=== PATIENT | male | born 1955 | race Caucasian/White ===

== ENCOUNTER → 2018-11-20 | Outpatient (CLI) | payer BC ==
--- NOTE | 2018-11-20 18:48 | RAD ---
Three-view right knee radiographs 11/20/2018 CLINICAL HISTORY: Chronic right knee pain and swelling. AP, lateral, and two oblique digital radiographs of the right knee were obtained. No fracture or dislocation right knee is seen. Mild to moderate degenerative changes are seen involving predominantly the medial and patellofemoral compartments of the right knee. Moderate enthesophyte formation is seen involving the superior and inferior anterior patella. There is no radiographic evidence of a joint effusion. IMPRESSION: Degenerative changes are seen involving the right knee as outlined above. No acute osseous abnormality is seen. Electronically signed by: Will Steward MD (11/20/2018 6:43 PM) [facility]
== END | disposition home or self-care (01) ==
LOC: RAD 16:31
PROVIDERS: ATTEND Family Medicine
DX: M17.11 Unilateral primary osteoarthritis, right knee (principal)
CPT/HCPCS: 73562

== ENCOUNTER → 2019-02-01 | Outpatient (CLI) | payer BC ==
--- NOTE | 2019-02-06 15:00 | SLEEP ---
DATE OF STUDY: 02/01/2019 ATTENDING PHYSICIAN: Dr. Tad Lee. The patient is 64 years old who weighs 255 pounds with a BMI of 35. The patient's [place] score was 11. The patient had a sleep study about 4 years ago and was diagnosed with sleep apnea. The patient, however, did not receive proper instructions about the use of CPAP. As a result, he did not use it. He was referred back for CPAP titration study. During the night study, the patient spent 410 minutes in bed and slept for 348 minutes with a sleep efficiency of 85%. Sleep latency was 7 minutes with a REM latency of 218 minutes. Overall, sleep architecture showed increased stage 1 and stage 2 sleep, absent slow wave and reduced REM sleep. EKG monitoring revealed normal sinus rhythm, average heart rate 68 beats per minute. No arrhythmias observed. PLMS were seen at index of 7 per hour and 1 per hour caused EEG arousals. The patient was started on CPAP at 5 cm water and titrated up to 11 cm water. At the final pressure, the patient slept for 101 minutes. The patient did not have any supine sleep, but had lateral REM sleep. The patient's AHI was reduced to 0 per hour and oxygen saturation remained above 92%. The patient used nasal pillows. IMPRESSION: 1. Sleep apnea diagnosed by previous sleep study. 2. No clinically significant PLMS. RECOMMENDATIONS: 1. CPAP at 11 cm water completely eliminated the patient's sleep apnea and should be used on a nightly basis. 2. Follow up in 4-6 weeks to assess compliance with CPAP and to document clinical improvement. 3. Weight loss is strongly advised. 4. Avoid TREE SCOUT depressants. 5. Caution regarding driving until symptoms of sleep apnea resolve with the use of CPAP. PATRICIA ARSHAD MD DR: MARÍA/isaura JOB#: [id number] / [id number] TAD Salazar
== END | disposition home or self-care (01) ==
LOC: SLPLAB 19:07
PROVIDERS: ATTEND Family Medicine
DX: G47.33 Obstructive sleep apnea (adult) (pediatric) (principal)
CPT/HCPCS: 95810

== ENCOUNTER 2019-07-18 15:21 | Inpatient (IN) | payer BC ==
[~2019-07-18] VITALS: Ht 180.3 cm; Wt 121.6 kg
[2019-07-18 15:41] VITALS: BP 168/99
--- NOTE | 2019-07-18 16:00 | NUR ---
pt arrived to unit at 1540 in stable condition. pt ambulated to room with independently. pt is alert and oriented and on RA. pt has call light within reach. pt is not having any pain at this time and states its only when he moves. paged dr ramos at this time for admit orders. will continue to monitor.
[2019-07-18] MEDS ORDERED: oxyCODONE/APAP 5/325 1 TAB TABLET PO PRN (17:15)
[2019-07-18] MEDS ORDERED: PANT20TA2 PO (17:37)
[2019-07-18] MEDS ORDERED: CELE200C PO (17:39)
[2019-07-18 17:54] LABS: BASO % 1 % (0-3); EOS % 0 % (0-3); HEMATOCRIT 41.7 % (39.0-53.0); HEMOGLOBIN 14.3 g/dL (13.0-17.5); LYMPH # 0.8 x10^3/uL (1.0-4.8); LYMPH % 10 % (24-48); MEAN CORPUSCULAR HEMOGLOBIN 28 pg (25-35); MEAN CORPUSCULAR HGB CONC 34 g/dL (31-37); MEAN CORPUSCULAR VOLUME 81 fL (79-100); MONO # 0.5 x10^3/uL (0.0-1.1); MONO % 6 % (0-9); NEUT # 6.5 x10^3/uL (1.8-7.7); NEUT % 84 % (31-73); PLATELET COUNT 182 x10^3/uL (140-400); RED BLOOD COUNT 5.12 x10^6/uL (4.30-5.70); RED CELL DISTRIBUTION WIDTH 14.4 % (11.5-14.5); WHITE BLOOD COUNT 7.8 x10^3/uL (4.0-11.0)
[2019-07-18 18:16] LABS: ALBUMIN 3.8 g/dL (3.4-5.0); ALBUMIN/GLOBULIN RATIO 1.2 (1.0-1.7); CALCIUM 8.9 mg/dL (8.5-10.1); GFR 75.2; POTASSIUM 4.1 mmol/L (3.5-5.1); TOTAL BILIRUBIN 0.5 mg/dL (0.2-1.0); TOTAL PROTEIN 7.1 g/dL (6.4-8.2)
[2019-07-18] MEDS: PANTOPRAZOLE 40 MG TABLET.DR. PO SCH (18:26)
[2019-07-18 19:00] VITALS: BP 149/92
[2019-07-18 19:06] LABS: BILIRUBIN,URINE NEGATIVE (NEG); CLARITY,URINE CLEAR; COLOR,URINE YELLOW; NITRITE,URINE NEGATIVE (NEG); PH,URINE 7.5; PROTEIN,URINE NEGATIVE (NEG-TRACE)
[2019-07-18 19:24] LABS: BACTERIA,URINE 0 /HPF (0-FEW); RBC,URINE OCC /HPF (0-2); SQUAMOUS EPITHELIAL CELL,UR FEW /LPF; WBC,URINE OCC /HPF (0-4)
--- NOTE | 2019-07-18 19:49 | HP ---
ADMIT DATE: 07/18/2019 ADMISSION HISTORY AND PHYSICAL CHIEF COMPLAINT AND HISTORY OF PRESENT ILLNESS: This 64-year-old white male is well known to me in followup in the office. The patient was seen on Tuesday of this week, 07/16, with a very unusual pain pattern with severe right buttock area pain, particularly with movement of his left leg. It was excruciating, debilitating giving him troubles getting up and down. It was felt it was most likely lumbar radicular in nature and was started on some prednisone. He was not improved by the , having troubles getting up still, could not get an outpatient MRI for another week, so elected to admit him to the expedite workup and get pain control. The patient, also on the day of admission, was ____ right foot, which was new from the time I saw him on Tuesday. PAST MEDICAL HISTORY: Remarkable for osteoarthritis, obstructive sleep apnea, GI irritation from nonsteroidals and history of Achilles tendinitis. MEDICATIONS: Meds were brought with the patient, listed on the computer and have been addressed. ALLERGIES: HE IS ALLERGIC TO PENICILLIN. SOCIAL HISTORY: The patient is a nonsmoker and drinks occasional beer, does not use drugs. Retired from post office. Lives with his . FAMILY HISTORY: Noncontributory. REVIEW OF SYSTEMS: As mentioned above. He denies specifically any bowel or bladder ____ leg weakness and can move his right leg without any pain, whatsoever. PHYSICAL EXAMINATION: GENERAL: He is a well-developed and well-nourished white male, in no acute distress at rest. VITAL SIGNS: Stable. He is afebrile. HEAD, EYES, EARS, NOSE AND THROAT: Unremarkable. NECK: Supple without thyromegaly. CHEST: Clear to auscultation and percussion. HEART: Regular rate and rhythm without S3, S4 or murmur. ABDOMEN: Soft and nontender without hepatosplenomegaly or masses. EXTREMITIES: Without cyanosis, clubbing or edema. There is very strong positive straight leg raising test on the 20-30 degrees on the left, but the pain is in the right buttock area. Eventually, the legs are intact. There is no palpable tenderness in his buttocks or axillary area on examination. IMPRESSION: Incapacitating lumbar radicular symptoms with inability to do activities to daily living. PLAN: The patient has been admitted. Dr. Oliveira will be consulted. MRI of the lumbar spine will be obtained. Pain will be controlled as best we can. The patient will be monitored, managed and treated appropriately. TAD DELUCA MD DR: JAMAL/isaura JOB#: [id number] / [id number]
[2019-07-18] MEDS: CYCLOBENZAPRINE 10 MG TABLET. PO PRN (22:06)
[2019-07-18 22:55] VITALS: BP 169/90
[2019-07-19 02:59] VITALS: BP 112/64
[2019-07-19 07:00] VITALS: BP 152/91
--- NOTE | 2019-07-19 08:33 | PDOC ---
GENERAL General: vss and afebrile. MRI not done yet. some numbness in both feet now. Dr. Oliveira to see. labs ok. chest clear, heart regular, abdomen benign. continued severe pain with attempted left SLR. VITAL SIGNS/I&O Vital Signs/I&O: Vital Signs Date Time Temp Pulse Resp B/P (MAP) Pulse Ox O2 Delivery O2 Flow Rate FiO2 07/19/19 02:59 97.7 64 16 112/64 (80) 97 Room Air 97.7 I & O 07/18/19 07/18/19 07/19/19 15:00 23:00 07:00 Intake Total 400 ml Balance 400 ml ALLERGIES Allergies: Allergies Coded Allergies Type Severity Reaction Last Updated Verified Penicillins Allergy Intermediate 07/19/19 Yes meloxicam Allergy Intermediate 07/19/19 Yes MEDS Medications: Current Medications Medications (Trade) Dose Ordered Sig/Rachell Route PRN Reason Start Time Stop Time Status Last Admin Dose Admin Cyclobenzaprine HCl (Flexeril) 10 mg PRN Q6HRS PRN PO MUSCLE SPASMS 07/18/19 17:00 07/18/19 22:06 Oxycodone/ Acetaminophen (Percocet 5/325) 1 tab PRN Q4HRS PRN PO MODERATE TO SEVERE PAIN 07/18/19 17:15 07/18/19 22:06 Pantoprazole Sodium (Protonix) 40 mg BIDAC PO 07/18/19 18:00 07/18/19 18:26 LAB Lab: Laboratory Tests Test 07/18/19 17:45 07/18/19 18:55 White Blood Count 7.8 x10^3/uL (4.0-11.0) Red Blood Count 5.12 x10^6/uL (4.30-5.70) Hemoglobin 14.3 g/dL (13.0-17.5) Hematocrit 41.7 % (39.0-53.0) Mean Corpuscular Volume 81 fL (79-100) Mean Corpuscular Hemoglobin 28 pg (25-35) Mean Corpuscular Hemoglobin Concent 34 g/dL (31-37) Red Cell Distribution Width 14.4 % (11.5-14.5) Platelet Count 182 x10^3/uL (140-400) Neutrophils (%) (Auto) 84 % (31-73) H Lymphocytes (%) (Auto) 10 % (24-48) L Monocytes (%) (Auto) 6 % (0-9) Eosinophils (%) (Auto) 0 % (0-3) Basophils (%) (Auto) 1 % (0-3) Neutrophils # (Auto) 6.5 x10^3/uL (1.8-7.7) Lymphocytes # (Auto) 0.8 x10^3/uL (1.0-4.8) L Monocytes # (Auto) 0.5 x10^3/uL (0.0-1.1) Eosinophils # (Auto) 0.0 x10^3/uL (0.0-0.7) Basophils # (Auto) 0.0 x10^3/uL (0.0-0.2) Erythrocyte Sedimentation Rate 3 (0-15) Sodium Level 143 mmol/L (136-145) Potassium Level 4.1 mmol/L (3.5-5.1) Chloride Level 107 mmol/L (98-107) Carbon Dioxide Level 26 mmol/L (21-32) Anion Gap 10 (6-14) Blood Urea Nitrogen 17 mg/dL (8-26) Creatinine 1.0 mg/dL (0.7-1.3) Estimated GFR (Cockcroft-Gault) 75.2 BUN/Creatinine Ratio 17 (6-20) Glucose Level 143 mg/dL (70-99) H Calcium Level 8.9 mg/dL (8.5-10.1) Total Bilirubin 0.5 mg/dL (0.2-1.0) Aspartate Amino Transferase (AST) 12 U/L (15-37) L Alanine Aminotransferase (ALT) 27 U/L (16-63) Alkaline Phosphatase 91 U/L (46-116) Total Protein 7.1 g/dL (6.4-8.2) Albumin 3.8 g/dL (3.4-5.0) Albumin/Globulin Ratio 1.2 (1.0-1.7) Urine Collection Type Unknown Urine Color Yellow Urine Clarity Clear Urine pH 7.5 Urine Specific [place] 1.015 Urine Protein Negative mg/dL (NEG-TRACE) Urine Glucose (UA) 100 mg/dL (NEG) Urine Ketones (Stick) Negative mg/dL (NEG) Urine Blood Negative (NEG) Urine Nitrite Negative (NEG) Urine Bilirubin Negative (NEG) Urine Urobilinogen Dipstick 1.0 mg/dL (0.2 mg/dL) Urine Leukocyte Esterase Negative (NEG) Urine RBC Occ /HPF (0-2) Urine WBC Occ /HPF (0-4) Urine Squamous Epithelial Cells Few /LPF Urine Bacteria 0 /HPF (0-FEW) Laboratory Tests 07/18/19 17:45 Laboratory Tests 07/18/19 17:45 TAD DELUCA MD Jul 19, 2019 08:33
[2019-07-19] MEDS: CELECOXIB 100 MG CAPSULE. PO SCH (08:54)
[2019-07-19] MEDS: PANTOPRAZOLE 40 MG TABLET.DR. PO SCH ×2 (08:54→16:06)
[2019-07-19] MEDS ORDERED: GADOTERATE 7.5 MMOL/15ML VIAL. IVP ONE (09:45)
[2019-07-19] MEDS ORDERED: BUPIVACAINE MPF 0.25% 10 ML VIAL. IJ ONE (10:00)
[2019-07-19] MEDS ORDERED: methylPREDNISolone ACETATE 40 MG/ML VIAL. IM ONE (10:00)
--- NOTE | 2019-07-19 10:42 | RAD ---
MRI Lumbar Spine without and with contrast History: Right lumbar radiculopathy Technique: Multiplanar, multi sequential pre and postcontrast MR imaging was performed of the lumbar spine. Comparison: None Findings: Lumbar vertebral body stature is maintained. There is grade 1 anterior spondylolisthesis at L4-5. Conus terminates at T12-L1. There is no nodular enhancement of the conus or cauda equina. There are small hemangiomas of T11 and L5. There is moderate to severe L5-S1 degenerative disc disease with degree of interbody calcification. There is mild degenerative disc disease at L4-5 and mild disc desiccation L3-4. L1-L2: This level was not included on axial images. Neural foramina and spinal canal are adequate. L2-L3: There is mild facet degenerative change. Neural foramina and spinal canal are adequate. L3-L4: There is anterior annular tear. There is mild buckling of the ligamentum flavum and facet hypertrophic change. There is minimal narrowing of the far right lateral recess. There is mild posterior narrowing of the left neural foramen by facet, right neural foramen overall adequate. L4-L5: There is small anterior annular tear. There is mild to moderate facet degenerative change. There is moderate right and mild left lateral recess stenosis primarily from posteriorly. There is mild narrowing of the left neural foramen by disc osteophyte complex and facet. Right neural foramen is not significantly narrowed. L5-S1: There is minimal disc osteophyte complex slightly indenting the ventral thecal sac greater right lateral recess, near descending right S1 nerve root without significant impingement. Spinal canal is overall adequate. There is minimal facet degenerative change. Neural foramina are overall adequate. Impression: 1. There is moderate right and mild left lateral recess stenosis at L4-5, minimal narrowing of the far right lateral recess L3-4. There is grade 1 anterior spondylolisthesis at L4-5 at which there is facet degenerative change. There is degenerative disc disease greatest at L5-S1, minimally at L4-5. Electronically signed by: Eren Barry MD (07/19/2019 10:39 AM) [facility]
[2019-07-19 11:00] VITALS: BP 136/72
--- NOTE | 2019-07-19 13:16 | PDOC4 ---
PROCEDURE Procedure At his request,I have injected painful right sacroiliac joint under aseptic skin technique using alcohol swab,with 1 ml of methylprednisone 40mg/1 ml.solution mixed with 2 ml of o.25% bupivacaine solution and he tolerated the procedure satisfactorily without any side effects. TONI MCFADDEN MD Jul 19, 2019 13:16
--- NOTE | 2019-07-19 14:24 | NUR ---
pt received steroid injection per Dr Oliveira to pt's low back pt tolerated well.Dr Lee notified of Dr Oliveira's discharge if okay with him,Dr Lee stated okay if pt feels well enough to go home,pt declines discharge today,discharge cancelled today.
[2019-07-19] MEDS: oxyCODONE ER 10 MG TAB.ER.12H PO SCH ×2 (14:39→21:41)
[2019-07-19 15:00] VITALS: BP 136/88
--- NOTE | 2019-07-19 15:55 | NUR ---
SS following for discharge planning. SS reviewed pt chart. Pt is from home with spouse and is currently on room air. No discharge needs noted at this time. SS will continue to follow for discharge planning.
[2019-07-19 19:00] VITALS: BP 122/67
--- NOTE | 2019-07-19 19:58 | CONS ---
DATE OF CONSULTATION: 07/19/2019 ATTENDING PHYSICIAN: Dr. Lee. LOCATION: He is in room 414. REASON FOR CONSULTATION: The patient was seen at the request of Dr. Lee for rehab evaluation. 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 The patient started having low back pain mainly with getting in under the bed without any specific injury, started about 10 days ago. He was seen at [facility] emergency room, had CT scan, which revealed degenerative disk disease at L4-L5 as per his . The patient admits moving his left lower extremity causes severe pain over right side of his lower back. The patient admits some tingling and numbness in his toes since yesterday. He denies any trouble with his bowel or bladder control or any weakness. The patient had steroid Dosepak for the last 3 days without much improvement, so he was admitted last night for further evaluation including MRI scan. The patient with known osteoarthritis, obstructive sleep apnea, GI irritation from nonsteroidal anti-inflammatory medication and history of Achilles tendinitis. ALLERGIES: THE PATIENT IS KNOWN ALLERGIC TO PENICILLIN. SOCIAL HISTORY: He is a nonsmoker. The patient lives with his . PHYSICAL EXAMINATION: Physical examination today revealed a middle-aged male. He is alert, in no acute distress, oriented to time, place, person and circumstance and no significant pain on forward flexion or extension of his lumbar spine, but pain on lateral bending to right side. The patient had localized tenderness to palpation over right sacroiliac joint area and straight leg raising test is negative bilaterally. He had 5/5 grade muscle strength in his extremities. Deep tendon reflexes are 2+ at knees, absent at both ankles. He had equal perception of touch and pinprick sensation bilaterally. He had pain free range of motion of both hip and knee joints. He is having significant pain while trying to lie down or trying to get up from lying down position. No lumbar paraspinal muscle spasm was noted at this time. ASSESSMENT: A middle-aged male with recent onset lumbosacral sprain in a patient with known degenerative disk disease of lumbar vertebrae without any clinical evidence of lumbar radiculopathy, clinical evidence of peripheral neuropathy, mild obesity, obstructive sleep apnea. RECOMMENDATIONS: To see what the MRI scan of her lumbar vertebrae shows to consider lumbar epidural steroid injection or right sacroiliac joint area injection to help ease the pain. Home when medically stable with outpatient followup. Dr. Lee, I appreciate asking me to participate in the care of this interesting patient. I will be glad to see him for followup with you on as needed basis. TONI MCFADDEN MD DR: JAVY/isaura JOB#: [id number] / [id number]
[2019-07-19] MEDS: CYCLOBENZAPRINE 10 MG TABLET. PO PRN (21:40)
[2019-07-19 22:45] VITALS: BP 111/69
[2019-07-20 03:00] VITALS: BP 93/53
[2019-07-20] MEDS: PANTOPRAZOLE 40 MG TABLET.DR. PO SCH (06:11)
[2019-07-20 07:00] VITALS: BP 157/93
[2019-07-20] MEDS: oxyCODONE ER 10 MG TAB.ER.12H PO SCH (08:44)
[2019-07-20] MEDS: CELECOXIB 100 MG CAPSULE. PO SCH (08:44)
--- NOTE | 2019-07-20 09:27 | PDOC ---
PROGRESS NOTES Subjective Subjective He admits pain relief lasting for 3 hours only after right sacroiliac joint injection and admits continued pain with bed mobility. Objective Objective Vital Signs Date Time Temp Pulse Resp B/P (MAP) Pulse Ox O2 Delivery O2 Flow Rate FiO2 07/20/19 08:45 Room Air 07/20/19 07:00 98.1 71 18 157/93 (114) 93 98.1 Intake and Output 07/20/19 06:59 Intake Total 530 ml Balance 530 ml Intake Oral 530 ml # Voids 3 Physical Exam Physical Exam He is alert and no change noted with his neurological examination and with small abdominal binder as lumbar corset,he got in and out of bed without any difficulty and he is walking independently. Plan Plan of Care To let him go home with out patient follow up and to consider lumbar epidural steroid injections or neurosurgical advise if pain persists and to let him take hydrocodone on as needed basis for pain as he admits not much help from oxycontin. Comment Review of Relevant I have reviewed the following items anant (where applicable) has been applied. Labs Laboratory Tests Test 07/18/19 17:45 07/18/19 18:55 White Blood Count 7.8 x10^3/uL (4.0-11.0) Red Blood Count 5.12 x10^6/uL (4.30-5.70) Hemoglobin 14.3 g/dL (13.0-17.5) Hematocrit 41.7 % (39.0-53.0) Mean Corpuscular Volume 81 fL (79-100) Mean Corpuscular Hemoglobin 28 pg (25-35) Mean Corpuscular Hemoglobin Concent 34 g/dL (31-37) Red Cell Distribution Width 14.4 % (11.5-14.5) Platelet Count 182 x10^3/uL (140-400) Neutrophils (%) (Auto) 84 % (31-73) Lymphocytes (%) (Auto) 10 % (24-48) Monocytes (%) (Auto) 6 % (0-9) Eosinophils (%) (Auto) 0 % (0-3) Basophils (%) (Auto) 1 % (0-3) Neutrophils # (Auto) 6.5 x10^3/uL (1.8-7.7) Lymphocytes # (Auto) 0.8 x10^3/uL (1.0-4.8) Monocytes # (Auto) 0.5 x10^3/uL (0.0-1.1) Eosinophils # (Auto) 0.0 x10^3/uL (0.0-0.7) Basophils # (Auto) 0.0 x10^3/uL (0.0-0.2) Erythrocyte Sedimentation Rate 3 (0-15) Sodium Level 143 mmol/L (136-145) Potassium Level 4.1 mmol/L (3.5-5.1) Chloride Level 107 mmol/L (98-107) Carbon Dioxide Level 26 mmol/L (21-32) Anion Gap 10 (6-14) Blood Urea Nitrogen 17 mg/dL (8-26) Creatinine 1.0 mg/dL (0.7-1.3) Estimated GFR (Cockcroft-Gault) 75.2 BUN/Creatinine Ratio 17 (6-20) Glucose Level 143 mg/dL (70-99) Calcium Level 8.9 mg/dL (8.5-10.1) Total Bilirubin 0.5 mg/dL (0.2-1.0) Aspartate Amino Transf (AST/SGOT) 12 U/L (15-37) Alanine Aminotransferase (ALT/SGPT) 27 U/L (16-63) Alkaline Phosphatase 91 U/L (46-116) Total Protein 7.1 g/dL (6.4-8.2) Albumin 3.8 g/dL (3.4-5.0) Albumin/Globulin Ratio 1.2 (1.0-1.7) Urine Collection Type Unknown Urine Color Yellow Urine Clarity Clear Urine pH 7.5 Urine Specific [place] 1.015 Urine Protein Negative mg/dL (NEG-TRACE) Urine Glucose (UA) 100 mg/dL (NEG) Urine Ketones (Stick) Negative mg/dL (NEG) Urine Blood Negative (NEG) Urine Nitrite Negative (NEG) Urine Bilirubin Negative (NEG) Urine Urobilinogen Dipstick 1.0 mg/dL (0.2 mg/dL) Urine Leukocyte Esterase Negative (NEG) Urine RBC Occ /HPF (0-2) Urine WBC Occ /HPF (0-4) Urine Squamous Epithelial Cells Few /LPF Urine Bacteria 0 /HPF (0-FEW) Medications Current Medications Cyclobenzaprine HCl (Flexeril) 10 mg PRN Q6HRS PRN PO MUSCLE SPASMS Last administered on 07/19/19 21:41; Start 07/18/19 at 17:00 Oxycodone/ Acetaminophen (Percocet 5/325) 1 tab PRN Q4HRS PRN PO MODERATE TO SEVERE PAIN Last administered on 07/18/19at 22:06; Start 07/18/19 at 17:15 Celecoxib (CeleBREX) 200 mg DAILY PO Last administered on 07/20/19 08:45; Start 07/19/19 at 09:00 Pantoprazole Sodium (Protonix) 40 mg BIDAC PO Last administered on 07/20/19 06:12; Start 07/18/19 at 18:00 Gadoterate Meglumine (Dotarem) 24.4 ml 1X ONCE IVP Last administered on 07/19/19at 09:50; Start 07/19/19 at 09:45; Stop 07/19/19 at 09:46; Status DC Methylprednisolone Acetate (DEPO-Medrol 40MG VIAL) 40 mg 1X ONCE IM ; Start 07/19/19 at 10:00; Stop 07/19/19 at 10:02; Status DC Bupivacaine HCl (Sensorcaine-Mpf 0.25%) 10 ml 1X ONCE IJ ; Start 07/19/19 at 10:00; Stop 07/19/19 at 10:02; Status DC Oxycodone HCl (OxyCONTIN) 10 mg Q12HR PO Last administered on 07/19/19 21:41; Start 07/19/19 at 14:00 Active Scripts Active Reported Celebrex (Celecoxib) 200 Mg Capsule 1 Cap PO DAILY Protonix (Pantoprazole Sodium) 20 Mg Tablet.dr 40 Mg PO BID Vitals/I & O Vital Sign - Last 24 Hours 07/19/19 07/19/19 07/19/19 07/19/19 11:00 14:39 15:00 19:00 Temp 98.6 98.4 98.3 98.6 98.4 98.3 Pulse 69 74 74 Resp 18 18 18 18 B/P (MAP) 136/72 (93) 136/88 (104) 122/67 (85) Pulse Ox 93 93 92 93 O2 Delivery Room Air Room Air Room Air Room Air 07/19/19 07/19/19 07/19/19 07/19/19 19:01 19:45 21:41 22:45 Temp 97.8 97.8 Pulse 71 Resp 20 16 18 B/P (MAP) 111/69 (83) Pulse Ox 92 94 O2 Delivery Room Air Room Air Room Air Room Air 07/20/19 07/20/19 07/20/19 07/20/19 01:43 03:00 07:00 08:45 Temp 98.4 98.1 98.4 98.1 Pulse 73 71 Resp 18 18 18 B/P (MAP) 93/53 (66) 157/93 (114) Pulse Ox 93 93 O2 Delivery Room Air Room Air Room Air Room Air Intake and Output 07/19/19 07/19/19 07/20/19 14:59 22:59 06:59 Intake Total 50 ml 480 ml Balance 50 ml 480 ml TONI MCFADDEN MD Jul 20, 2019 09:27
[2019-07-20 09:33] VITALS: BP 136/85
--- NOTE | 2019-07-20 10:04 | NUR ---
Pt. discharged to home with Rx and abd binder. Pt. and verbalized understanding of discharge instructions.
--- NOTE | 2019-07-21 01:30 | DS ---
DATE OF DISCHARGE: 07/20/2019 PRIMARY DIAGNOSES: 1. Right lower back and leg pain with numbness consistent with lumbar radiculopathy. 2. Right sacroiliac pain with injection by Dr. Oliveira during the stay. CHIEF COMPLAINT AND HISTORY OF PRESENT ILLNESS: This is a 64-year-old white male who was admitted, incapacitated with right buttocks pain that was worse, particularly with moving his left leg in a straight leg raising type fashion. He had failed 2 days of outpatient prednisone and pain medicines. He was unable to get off the couch and was admitted for more expedited workup as we could only get an outpatient MRI in a week or so as an outpatient. SUMMARY OF STAY: The patient was admitted. Dr. Oliveira was asked to see him. MRI of the lumbar spine showed moderate right and mild left lateral recess stenosis at L4-L5, minimal narrowing of the far right lateral access at L3-L4, grade 1 anterior spondylolisthesis at L4-L5, degenerative disk disease, greatest at L5-S1, minimally at L4-L5. Dr. Oliveira injected his sacroiliac joint. ____ relieved his pain. 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 Thus, I think he can go home to see how he would do with the same and ____ we would go with the conservative therapy as an outpatient. DISPOSITION: The patient is discharged to home. DIET: Regular. ACTIVITY: As tolerated. FOLLOWUP: Office followup next week. DISCHARGE MEDICATIONS: Listed on the med rec and have been addressed. TAD DELUCA MD DR: JAMAL/isaura JOB#: [id number] / [id number]
== END 2019-07-20 10:00 | disposition home or self-care (01) | DRG 552 ==
LOC: 4 NORTH 15:26
PROVIDERS: ADMIT Family Medicine; ATTEND Family Medicine
PROC: 3E0U33Z Introduction of Anti-inflammatory into Joints, Percutaneous Approach (ICD-10-PCS; principal; 2019-07-19)
PROC: 3E0U3BZ Introduction of Anesthetic Agent into Joints, Percutaneous Approach (ICD-10-PCS; 2019-07-19)
DX: M51.16 Intervertebral disc disorders with radiculopathy, lumbar region (principal); G47.33 Obstructive sleep apnea (adult) (pediatric); Z88.0 Allergy status to penicillin; M19.90 Unspecified osteoarthritis, unspecified site; M48.061 Spinal stenosis, lumbar region without neurogenic claudication; E66.9 Obesity, unspecified; Z68.37 Body mass index [BMI] 37.0-37.9, adult
CPT/HCPCS: 36415; 72158; 80053; 81001; 85025; 85651; A9575; G0378

== ENCOUNTER → 2019-08-21 | Outpatient (CLI) | payer BC ==
[~2019-08-21] MED LIST: ASPI81TA50 PO; CELE200C PO; IOHEXOL 180 MG/ML 10 ML VIAL. ONE; PANT20TA2 PO; methylPREDNISolone ACETATE 40 MG/ML VIAL. ONE; methylPREDNISolone ACETATE 80 MG/ML VIAL. ONE
--- NOTE | 2019-08-22 02:37 | PAIN ---
DATE OF SERVICE: 08/21/2019 INITIAL CONSULTATION FOR PAIN CLINIC CHIEF COMPLAINT: Low back and right lower extremity pain. HISTORY OF PRESENT ILLNESS: This is a 64-year-old male who presents with history of pain, for about the past 7 weeks, he was lifting some 5 gallons buckets of water in his garden and reports he had some significant pain as noticed in the low back and the right leg since that time. The patient reports it is getting better minimally, but he was actually hospitalized for the pain for a day or two and when it first happened, the patient reports he had an injection in the right hip of cortisone, which helped but only immediately and was worn off within a few hours. He was referred to a neurosurgeon who is recommending conservative treatment at this time. The patient reports it is worse with walking, standing, changing positions. When he is standing still, it is not significantly painful or even walking short distances, it is not significantly painful as well, but with changing positions, getting up from a seated position or sitting from standing, getting out of bed in the morning, the patient reports the pain is across the low back into the right posterior gluteus, posterior thigh and occasionally in the posterior calf with some tingling in the toes, but only very rarely. The patient reports the pain is sharp, intermittent in intensity in the right side and the low back. The patient did have an MRI scan of the lumbar spine showing moderate right and mild left lateral recess stenosis at L4-L5 with degenerative disk disease greatest at L5-S1, minimally at L4-L5 with disk osteophyte complex at L5-S1 indenting the ventral thecal sac in the greater than right lateral recess near the descending right S1 nerve root without significant impingement. The patient rates his disability from 0-10, 10 being the worst, 9 with family home responsibilities, 10 with sexual behavior, 7 with social activity, 8 with self-care, and 2 with life support activities. The patient reports it does awaken him from sleep about twice a night, does not affect his bowel or bladder control, but does affect his ability to walk; he is not using any assistive devices, however. The patient has had chiropractic treatment as well as doing exercise on his own. He is also taking hydrocodone, which does decrease the pain; he has taken that last night most recently. PAST MEDICAL HISTORY: Significant for gastroesophageal reflux, dizziness, vertigo and arthritis. PREVIOUS SURGERY: Include cataract extractions, deviated septum surgery and umbilical hernia repair. CURRENT MEDICATIONS: Include pantoprazole, Celebrex, fish oil and baby aspirin. ALLERGIES: The patient has no known drug allergies. FAMILY HISTORY: Significant for Alzheimer's disease. SOCIAL HISTORY: The patient drinks 2 to 3 alcoholic drinks once a month on average. He does not use any illegal, illicit or recreational drugs. Does not smoke, does not use any other tobacco products. He is , lives with his spouse, lives locally in [place], [place]. Reports he is currently retired. REVIEW OF SYSTEMS: The patient's review of systems is positive for those items mentioned in history of present illness. All systems reviewed and otherwise negative. It is complete, full and well documented on the patient's chart. PHYSICAL EXAMINATION: VITAL SIGNS: The patient's blood pressure is 152/97, pulse 77, respirations 18, temperature 98.4 degrees Fahrenheit, height is 5 feet 11 inches, weight is 268 pounds. GENERAL: The patient is awake, alert, oriented, appropriate, very pleasant demeanor. HEENT: Shows normocephalic, atraumatic. Extraocular movements are intact and symmetrical. Oral cavity: Mucous membranes moist and pink. Dentition is intact. NECK: Shows anterior throat supple without palpable lymphadenopathy noted. Swallow reflex symmetrical. CHEST: Shows normal on inspection. Breath sounds clear to auscultation bilaterally. HEART: Shows S1, S2 clear. No murmurs auscultated. ABDOMEN: Soft, nontender, nondistended. No palpable organomegaly is noted. No rebound or guarding demonstrated. BACK: The patient's back shows spine grossly in the midline, normal appearing thoracic kyphosis, some minor flattening of lumbar lordotic curvature. Lumbar paraspinous muscle shows symmetrical on inspection, on palpation shows some moderate tenderness bilaterally, but only diffusely without radiation. The patient has good rotational motion of lumbar spine, both laterally greater than 10 degrees right and left as well as extension greater than 10 degrees, forward flexion 45 degrees without significant increase in pain, no tenderness over the sacrum and sacroiliac regions or the spinous processes with palpation. EXTREMITIES: The patient's lower extremities show deep tendon reflexes at 2+ in the patellar, 1+ tendo-calcaneus tendons. Motor exam is strong with 5/5 dorsiflexion, extension, quadriceps and hamstring flexion symmetrical. Peripheral pulses are 1+ posterior tibia. No peripheral edema is noted bilaterally. Lower extremities are warm and dry to touch, equal in color and appearance. The patient's straight leg raise noted to be negative for reproduction of radicular symptoms bilaterally. Gaenslen's and Danny's maneuvers are negative bilaterally as well. The patient is able to stand, has difficulty getting from a seated position to standing. He uses arm rests on the chair to get into a standing position more comfortably, but is walking with a normal appearing gait, does not appear to favor the right or left lower extremity significantly. SKIN: The patient's skin shows warm and dry, good turgor. No edema. No sores, rashes or bruising throughout. IMPRESSION: 1. This is a 64-year-old male with approximately 7-week history of low back and right lower extremity pain in a radicular fashion. 2. MRI scan of lumbar spine as noted. 3. Arthritis. 4. Gastroesophageal reflux. PLAN: Options were discussed with the patient including conservative medical management, physical therapy, interventional techniques. He would like to pursue interventional techniques. We discussed a lumbar epidural steroid injection using description as well as anatomical models to describe the procedure. Risks were then discussed including, but not limited to bleeding, infection, possibility of epidural hematoma, subsequent neurological compromise, dural puncture, headaches, spinal cord and/or nerve damage, side effects of steroid medication and poor results regarding pain control. The patient understands and wished to proceed. The patient will return to the clinic in approximately 2 weeks for followup. He was counseled on return appointment, activity level and side effects to be aware of. DIAGNOSES: Lumbar radiculopathy with lumbar degenerative disk disease and lumbar spinal stenosis. PROCEDURE: Lumbar epidural steroid injection, translaminar approach at the L5-S1 level using C-arm fluoroscopic guidance under sterile prep and drape using local anesthetic. MEDICATION INJECTED: A total of 120 mg Depo-Medrol plus 10 mL of preservative-free normal saline and 2 mL of contrast. CONDITION AT DISCHARGE: Stable. The patient tolerated procedure well, had no complications. JAMILA MONSIVAIS MD DR: ROBERT/isaura JOB#: [id number] / [id number] TAD Salazar MD
== END ==
LOC: PNCL 11:08
PROVIDERS: ATTEND Anesthesiology
DX: M51.16 Intervertebral disc disorders with radiculopathy, lumbar region (principal); M48.061 Spinal stenosis, lumbar region without neurogenic claudication; K21.9 Gastro-esophageal reflux disease without esophagitis; Z87.39 Personal history of other diseases of the musculoskeletal system and connective tissue; Z98.42 Cataract extraction status, left eye; Z98.41 Cataract extraction status, right eye; Z96.1 Presence of intraocular lens; Z72.89 Other problems related to lifestyle
CPT/HCPCS: 62323; J1030; J1040; Q9965

== ENCOUNTER → 2019-09-04 | Outpatient (CLI) | payer BC ==
[~2019-09-04] MED LIST changes: +OXYC1TAB22 PO; +OXYC20TA34 PO
--- NOTE | 2019-09-04 12:04 | PAIN ---
DATE OF SERVICE: 09/04/2019 PROGRESS NOTE FOR PAIN CLINIC DIAGNOSES: Lumbar radiculopathy with lumbar degenerative disk disease, lumbar spinal stenosis. HISTORY OF PRESENT ILLNESS: The patient is a 64-year-old male who returns for followup status post lumbar epidural steroid injection x 1. The patient reports 95% improvement in the low back and right lower extremity. The patient reports still some pain in the hip; however, it has been noticeable in the morning when he first gets up and has been having some difficulty with walking for greater than 10-15 minutes. The patient reports he is being very careful with his back and not lifting greater than 10 pounds, but increasing distance walking, doing work activities, household activities with much greater ease and comfort, sleeping much better at night, is very pleased with his progress, but still has significant pain in the right posterior gluteus, posterior thigh. The patient reports it is a 6 on a scale of 10 at its worst over the past week 1 on average, 0 at its least and is a 1 today. The patient reports it is sharp, cramping and aching at times and shooting at times, but much improved. The patient reports no new motor or sensory deficits, no new bowel or bladder incontinence, has not taken any pain pill since his last visit. PHYSICAL EXAMINATION: VITAL SIGNS: The patient's blood pressure 145/95, pulse 72, respirations 18, temperature 98.2 degrees Fahrenheit, height is 6 feet, weight is 266 pounds. GENERAL: The patient is awake, alert, oriented, appropriate, very pleasant demeanor. HEENT: Shows normocephalic, atraumatic. Extraocular movements are intact and symmetrical. Oral cavity: Mucous membranes moist and pink. Dentition is intact. NECK: Shows anterior throat supple without palpable lymphadenopathy noted. Swallow reflex symmetrical. CHEST: Shows normal on inspection. Breath sounds clear to auscultation bilaterally. HEART: Shows S1, S2 clear. No murmurs auscultated. ABDOMEN: Soft, nontender, nondistended. BACK: Shows spine grossly in the midline. Normal-appearing thoracic kyphosis and lumbar lordotic curvature is slightly flattened. Lumbar paraspinous muscle shows symmetrical on inspection, on palpation shows some moderate tenderness diffusely, but only diffusely without radiation. EXTREMITIES: The patient's lower extremities show deep tendon reflexes at 2+ in the patellar, 1+ tendo-calcaneus tendons. Motor exam is strong with 5/5 dorsiflexion and extension. Peripheral pulses are 1+. No peripheral edema is noted bilaterally. Options were discussed with the patient. The patient's old chart was reviewed as his current medication regimen updated. Current review of systems updated today as well. We will proceed with a lumbar epidural steroid injection today with a second in series with fluoroscopic guidance. Risks were again discussed including, but not limited to bleeding, infection, possibility of epidural hematoma, subsequent neurological compromise, dural puncture, headaches, spinal cord and/or nerve damage, side effects of steroid medication and poor results regarding pain control. The patient understands and wished to proceed. The patient will return to clinic in approximately 2 weeks for followup. He was counseled on return appointment, activity level and side effects to be aware of. DIAGNOSES: Lumbar radiculopathy with lumbar degenerative disk disease, lumbar spinal stenosis. PROCEDURE: Lumbar epidural steroid injection, translaminar approach at the L5-S1 level using C-arm fluoroscopic guidance under sterile prep and drape using local anesthetic. MEDICATION INJECTED: A total of 120 mg Depo-Medrol plus 10 mL preservative-free normal saline and 2 mL of contrast. CONDITION AT DISCHARGE: Stable. The patient tolerated procedure well, had no complications. JAMILA MONSIVAIS MD DR: ROBERT/isaura JOB#: [id number] / [id number]
== END ==
LOC: PNCL 10:06
PROVIDERS: ATTEND Anesthesiology
DX: M51.16 Intervertebral disc disorders with radiculopathy, lumbar region (principal); M48.061 Spinal stenosis, lumbar region without neurogenic claudication
CPT/HCPCS: 62323; J1030; J1040; Q9965